=== PATIENT | female | born 1930 | race Caucasian/White ===

== ENCOUNTER 2017-03-25 09:57 | Outpatient (CLI) | END 2017-03-25 09:58 | LOC: AMBL 09:57 | PROVIDERS: ATTEND Emergency Medicine | DX: R51 Headache (principal); R22.0 Localized swelling, mass and lump, head; M25.512 Pain in left shoulder; S61.011A Laceration without foreign body of right thumb without damage to nail, initial encounter; S61.411A Laceration without foreign body of right hand, initial encounter; S80.212A Abrasion, left knee, initial encounter; W10.9XXA Fall (on) (from) unspecified stairs and steps, initial encounter ==

== ENCOUNTER 2017-04-03 06:50 | Emergency (ER) ==
[2017-04-03 06:50] VITALS: BMI 25.4
[2017-04-03 07:10] VITALS: BP 143/76; TEMP 98.6
[2017-04-03 07:51] LABS: BASOPHILS # (AUTO) 0.1 K/uL (0-0.2); BASOPHILS % (AUTO) 0.5 % (0.0-3.0); EOSINOPHILS # (AUTO) 0.2 K/ul (0.0-0.7); EOSINOPHILS % (AUTO) 1.6 % (0.0-7.0); HEMATOCRIT 35.3 % (37.0-47.0); HEMOGLOBIN 12.9 g/dl (12.0-16.0); IMMATURE GRANULOCYTE % (AUTO) 0.6 % (0.0-5.0); LYMPHOCYTES # (AUTO) 2.6 K/uL (0.60-3.4); LYMPHOCYTES % (AUTO) 24.4 (10.0-50.0); MEAN CORPUSCULAR HEMOGLOBIN 31.9 pg (27.0-31.0); MEAN CORPUSCULAR HGB CONC 36.5 (31.8-35.4); MEAN CORPUSCULAR VOLUME 87.4 fl (81.0-99.0); MONOCYTES # (AUTO) 0.8 K/uL (0.4-2.0); MONOCYTES % (AUTO) 7.8 (0-10); NEUTROPHILS % (AUTO) 65.1; PLATELET COUNT 298 10^3/uL (140-440); RED BLOOD COUNT 4.04 10^6/ul (4.20-5.40); WHITE BLOOD COUNT 10.66 K/ul (4.6-10.2)
[2017-04-03 08:14] LABS: ALANINE AMINOTRANSFERASE 15 U/L (12-78); ALBUMIN 3.4 g/dL (3.4-5.0); ALBUMIN/GLOBULIN RATIO 1.17; ALKALINE PHOSPHATASE 78 U/L (53-141); ANION GAP 12.2; ASPARTATE AMINO TRANSFERASE 20 U/L (15-37); BILIRUBIN,TOTAL 0.57 mg/dL (0.00-1.20); BLOOD UREA NITROGEN 9 mg/dL (7-18); BUN/CREATININE RATIO 13.04; CALCIUM 9.2 mg/dL (8.2-10.2); CARBON DIOXIDE 29 mmol/L (23-31); CHLORIDE 93 mmol/L (98-107); CREATINE KINASE 99 U/L; CREATININE 0.69 mg/dL (0.60-1.30); GLUCOSE 108 mg/dL (82-115); POTASSIUM 3.2 mmol/L (3.5-5.10); SODIUM 131 mmol/L (136-145); TOTAL PROTEIN 6.3 g/dL (5.8-8.1)
[2017-04-03 08:38] LABS: BILIRUBIN,URINE Negative (NEGATIVE); KETONES,URINE Negative (NEGATIVE); LEUKOCYTE ESTERASE ,URINE Negative (NEGATIVE); NITRITE,URINE Negative (NEGATIVE); PROTEIN,URINE Negative (NEGATIVE); URINE, BLOOD Negative (NEGATIVE)
[2017-04-03 08:39] LABS: ADD URINE MICROSCOPIC NO
--- NOTE | 2017-04-03 08:41 | CT ---
EXAM: CT of the abdomen pelvis without contrast History: Abdominal pain. Comparison: Chest CT 04/03/2017 Technique: Multiplanar CT images through the abdomen and pelvis were obtained without the administr ation of IV contrast Findings: Heart is mildly enlarged. Coronary calcifications. Bibasilar subsegmental atelectasis a nd trace left pleural effusion. Osteopenia. Left hip arthroplasty hardware. Degenerative changes o f the spine. Subacute appearing mild compression fracture involving the superior endplate of T11. Atherosclerotic vascular calcifications. Status post cholecystectomy. No focal liver or splenic le sions. Moderate to large hiatal hernia. No peripancreatic inflammation. Adrenal glands are unrema rkable. No renal stones and no hydronephrosis. No bladder wall thickening. The rectum is distende d with air and stool. No bowel obstruction. Small area of fat necrosis within the right lower quad rant. Evaluation of the pelvis is somewhat limited due to streak artifact from hardware. Impression: 1. No acute intra-abdominal or pelvic process. 2. [id number] hiatal hernia. 3. Subacute compression fracture involving the superior endplate of T11. 4. Coronary artery disease. 5. Bibasilar subsegmental atelectasis and trace left pleural effusion.
--- NOTE | 2017-04-03 08:44 | CT ---
EXAM: CT chest without contrast. HISTORY: Cough. Initial presentation for chest trauma due to a fall. Left-sided chest pain. COMPARISON: None available. TECHNIQUE: Multiple axial images of the chest were obtained without intravenous contrast. Images w ere reformatted in the sagittal and coronal planes. FINDINGS: Evaluation for lymphadenopathy is limited by lack of intravenous contrast. Calcified med iastinal and hilar lymph nodes present. Heart size is normal. Atherosclerotic calcifications prese nt. The aorta and coronary arteries. No pericardial effusion identified. Scattered areas of subsegmental atelectasis noted in the lung bases, greatest in the left adjacent t o a large hiatal hernia. Calcified granulomatous changes are present. Trace left pleural effusion i s present. No pneumothorax identified. There is subacute to old left lateral fifth, eleventh and t enth rib fractures. Mild superior endplate compression deformity of T11 noted. Limited images of t he upper abdomen demonstrate no acute finding. IMPRESSION: 1. Age indeterminate, subacute to old, left lateral fifth, tenth and eleventh rib fractures. Correl ation with site of pain recommended. 2. Trace left pleural effusion and bibasilar atelectasis. 3. Large hiatal hernia.
--- NOTE | 2017-04-03 08:45 | CT ---
EXAM: CT LUMBAR SPINE HISTORY: Fall 8 days back, left-sided pain TECHNIQUE: CT lumbar spine without contrast. 3-mm axial sections. Coronal and sagittal reformatio ns. COMPARISON: None FINDINGS: The bones are significantly demineralized. There is diffuse severe degenerative disc and facet dise ase. Mild to moderate scoliosis. Degenerative changes lead to multilevel moderate to severe central canal stenosis and neural foraminal narrowing. The central stenosis is probably most apparent at L 4/L5 and the neural foraminal narrowing most apparent on the right at L2/L3. Sacroiliac joints are intact. No paraspinal hematoma. See also same day CT thorax report. IMPRESSION: No acute fracture identified. Severe degenerative changes.
--- NOTE | 2017-04-03 09:47 | CT ---
EXAM: CT of the head without contrast History: Head trauma. Comparison: None available. Technique: Multiplanar CT images through the head were obtained without the administration of IV co ntrast Findings: The visualized paranasal sinuses and mastoid air cells are clear in general. No acute janes varial abnormalities. Intracranially the ventricular and cisternal spaces are normal in size, shape and configuration for a patient of this age. No dominant mass or midline shift. No hydrocephalous. No acute intracrania l hemorrhage or abnormal extraaxial fluid collections. Impression: No acute intracranial process.
--- NOTE | 2017-04-03 09:50 | CT ---
EXAM: CT of the thoracic spine without contrast History: Back trauma. Technique: Multiplanar CT images through the thoracic spine were obtained without the administratio n of IV contrast Findings: Back trauma. Findings: Basilar subsegmental atelectasis and trace left pleural effusion. Coronary artery calcif ications. Osteopenia. Mild to moderate multilevel degenerative disc space narrowing. Acute or subacute compr ession fractures involving the superior endplates of T11 and T12. No subluxation. Bony spinal dianne l is not significantly compromised. Impression: Acute or subacute compression fractures involving superior endplates of T11 and T12.
--- NOTE | 2017-04-03 10:02 | CT ---
EXAM: CT cervical spine. HISTORY: Neck pain. TECHNIQUE: CT cervical spine without contrast. Detailed axial sections. Coronal and sagittal re-f ormations. COMPARISON: None FINDINGS: The bones appear significantly demineralized. There is diffuse degenerative disc and fac et disease. Lateral masses of C1 and C2 are normally aligned and the odontoid process is intact. No spondylolisthesis. There is a minimally distracted fracture involving the left T1 transverse proces s and also a hairline hairline fracture at the same level of the left T2 transverse process. There is no fracture at the level of the cervical spine identified. No traumatic central canal stenosis o r paraspinal hematoma. IMPRESSION: 1. There is a minimally distracted fracture involving the left T1 transverse process and also a emy rline hairline fracture at the same level of the left T2 transverse process. 2. No fractures identified at the level of the cervical spine. 3. Generalized demineralization and degenerative disc/facet disease.
--- NOTE | 2017-04-03 10:43 | ED.PDOC ---
General ED Provider: Dr. MORIAH SHAFFER Chief Complaint: Back Pain Stated Complaint: injury fall back pain chest pain Time Seen by Physician: 07:00 (seen with nursing staff ) Mode of Arrival: Wheelchair Information Source: Patient Exam Limitations: No limitations Primary Care Provider: KEVIN WEN Nursing and Triage Documentation Reviewed and Agree: Yes (fell 9 days ago was seen at [facility] at onset work up was negative) Trauma/Injury Complaint Exam - Trauma Complaint/Exam Location of Pain or Injury: Reports: Neck, Chest, Back Mechanism of Injury: Reports: Fall (standing postion 9 days ago) Onset/Duration: 9 days Symptoms Are: Still present Timing of Treatment: Delayed Initial Severity: Mild Current Severity: Mild Character: Reports: Aching Aggravating: Reports: Movement Alleviating: Reports: Rest, Immobilization Associated Signs and Symptoms: Denies: LOC, Confusion, Memory loss, Lethargy, Vomiting, Bleeding, Bruising, Swelling, Extremity disuse, Painful respiration, Hoarseness, Dysphagia, Hemoptysis, Significant blood loss Related Surgical History: Reports: None Nexus Low Risk Criteria: No evidence of intoxicat., No Altered LOC, No focal neuro deficit, No distracting injuries Glascow Coma Scale (see protocol): 15 Differential Diagnoses: Fracture, Sprain, Strain Review of Systems - Review Of Systems Constitutional: Reports: No symptoms Eyes: Reports: No symptoms Ears, Nose, Mouth, Throat: Reports: No symptoms Respiratory: Reports: No symptoms Cardiac: Reports: Chest pain GI: Reports: No symptoms : Reports: No symptoms Musculoskeletal: Reports: Back pain, Neck pain Skin: Reports: No symptoms Neurological: Reports: No symptoms Endocrine: Reports: No symptoms Hematologic/Lymphatic: Reports: No symptoms All Other Systems: Reviewed and Negative Past Medical History - Past Medical History Previously Healthy: Yes Endocrine: Reports: Hypothyroid Cardiovascular: Reports: Hypertension Respiratory: Reports: None Hematological: Reports: None Gastrointestinal: Reports: None Genitourinary: Reports: None Neuro/Psych: Reports: None Musculoskeletal: Reports: None Cancer: Reports: None Last Menstrual Period: PT HAS HAD A HYSTERECTOMY - Surgical History General Surgical History: Reports: Orthopedic (hip left) - Family History Family History: Reports: Heart - Social History Smoking Status: Never smoker Hx Substance Use: No Alcohol Screening: None - Immunizations Tetanus Shot up to Date: Yes (MARCH 2017) Physical Exam - Physical Exam Appearance: Well-appearing, No pain distress, Well-nourished Eyes: JANAK, EOMI, Conjunctiva clear ENT: Ears normal, Nose normal, Oropharynx normal Respiratory: Airway patent, Breath sounds clear, Breath sounds equal, Respirations nonlabored Cardiovascular: RRR, Pulses normal, No rub, No murmur GI/: Soft, Nontender, No masses, Bowel sounds normal, No Organomegaly Musculoskeletal: Normal strength, ROM intact, No edema, No calf tenderness Skin: Warm, Dry, Normal color Neurological: Sensation intact, Motor intact, Reflexes intact, Cranial nerves intact, Alert, Oriented Psychiatric: Affect appropriate, Mood appropriate Interpretation - Radiology Interpretation Radiology Interpretation By: Radiologist Radiology Results: Positive (stable t11, t12 fracture rib fractures) Physician Notification - Case Discussed Physician Notified: pmd Time of Notification: 10:45 Critical Care Note - Critical Care Note Total Time (mins): 0 Course - Course Hematology/Chemistry: 04/03/17 07:45 04/03/17 07:45 Orders, Labs, Meds: Lab Review 04/03/17 04/03/17 07:45 08:30 WBC 10.66 H RBC 4.04 L Hgb 12.9 Hct 35.3 L MCV 87.4 MCH 31.9 H MCHC 36.5 H RDW Coeff of Tammy 12.3 Plt Count 298 Immature Gran % (Auto) 0.6 Neut % (Auto) 65.1 Lymph % (Auto) 24.4 [place] % (Auto) 7.8 Eos % (Auto) 1.6 Baso % (Auto) 0.5 Immature Gran # (Auto) 0.1 Neut # 7.0 H Lymph # 2.6 [place]lands # 0.8 Eos # 0.2 Baso # 0.1 Sodium 131 L Potassium 3.2 L Chloride 93 L Carbon Dioxide 29 Anion Gap 12.2 BUN 9 Creatinine 0.69 Estimated GFR (MDRD) 81.00 BUN/Creatinine Ratio 13.04 Glucose 108 Calcium 9.2 Total Bilirubin 0.57 AST 20 ALT 15 Alkaline Phosphatase 78 Total Creatine Kinase 99 Troponin I < 0.0100 Total Protein 6.3 Albumin 3.4 Globulin 2.9 Albumin/Globulin Ratio 1.17 Urine Color Yellow Urine Clarity Clear Urine pH 7.0 Ur Specific [place] 1.015 Urine Protein Negative Urine Glucose (UA) Negative Urine Ketones Negative Urine Blood Negative Urine Nitrite Negative Urine Bilirubin Negative Urine Urobilinogen 0.2 Ur Leukocyte Esterase Negative Orders Category Date Time Status EKG-(ED ONLY) Stat CARDIO 04/03/17 07:32 Completed CBC W/ AUTO DIFF Stat LAB 04/03/17 07:45 Completed COMPREHENSIVE METABOLIC PANEL Stat LAB 04/03/17 07:45 Completed CREATINE KINASE Stat LAB 04/03/17 07:45 Completed TROPONIN I Stat LAB 04/03/17 07:45 Completed URINALYSIS C & S IF INDICATED Stat LAB 04/03/17 08:[address] ABDOMEN/PELVIS WO CONTRAST Stat RADS 04/03/17 07:[address] CERVICAL SPINE W/O CONTRAST Stat RADS 04/03/17 09:[address] CHEST W/O CONTRAST Stat RADS 04/03/17 07:[address] HEAD W/O CONTRAST Stat RADS 04/03/17 09:[address] LUMBAR SPINE W/O CONTRAST Stat RADS 04/03/17 07:[address] THORACIC SPINE W/O CONTRAST Stat RADS 04/03/17 09:14 Completed Vital Signs: Temp Pulse Resp BP Pulse Ox 04/03/17 06:51 98.6 F 66 18 143/76 H 95 Departure - Departure Time of Disposition: 10:45 (pmd notified requested to notify doctor aristeo . neuro surgeon will see pt ) Disposition: ADMITTED INPATIENT Discharge Problem: Backache Fracture of rib Qualifiers: Encounter type: initial encounter Rib fracture type: multiple ribs Fracture type: closed Laterality: left Qualifier Code: (S22.42XA) Multiple fractures of ribs, left side, initial encounter for closed fracture Closed fracture of eleventh thoracic vertebra Qualifiers: Encounter type: initial encounter Fracture morphology: unspecified fracture morphology Qualifier Code: (S22.089A) Unspecified fracture of T11-T12 vertebra, initial encounter for closed fracture Instructions: Rib Fracture (ED) Condition: Good Pt referred to PMD for follow-up: Yes (transfer now) Additional Instructions: Please call your Family Physician as soon as possible to schedule a follow-up appointment. Allergies/Adverse Reactions: Allergies latex Adverse Reaction (Verified 04/03/17 07:11) BREAK OUT Home Medications: Ambulatory Orders Atenolol/Chlorthalidone [Tenoretic 50 Tablet] 0.5 tab PO DAILY 07/03/14 Levothyroxine Sodium [Synthroid] 50 mg PO DAILY 07/03/14 Raloxifene HCl [Evista] 60 mg PO DAILY 07/03/14 Spironolactone [Aldactone] 25 mg PO EVERY OTHER DAY 07/03/14 Naproxen [Naprosyn] 500 mg PO BID PRN 11/09/15 Meclizine HCl [Antivert] 25 mg PO TID PRN 04/03/17
== END 2017-04-03 11:28 | disposition short-term general hospital (02) ==
LOC: ED 06:50
DX: S22.089A Unspecified fracture of T11-T12 vertebra, initial encounter for closed fracture (principal); S22.42XA Multiple fractures of ribs, left side, initial encounter for closed fracture; M54.2 Cervicalgia; E03.9 Hypothyroidism, unspecified; I10 Essential (primary) hypertension; W19.XXXA Unspecified fall, initial encounter; Z79.899 Other long term (current) drug therapy
CPT/HCPCS: 36415; 80053; 81001; 82550; 84484; 85025; 93005; 93010; 99285

== ENCOUNTER 2017-04-06 17:08 | Inpatient (IN) | payer OTHER ==
[2017-04-06] MEDS ORDERED: MIRALAX PO PRN (17:28)
[2017-04-06] MEDS ORDERED: NORCO 5-325 PO PRN (17:29)
[2017-04-06] MEDS: TYLENOL PO PRN ×2 (18:14→22:23)
[2017-04-06 18:59] VITALS: BMI 22.3
[2017-04-07] MEDS: TYLENOL PO PRN ×3 (04:06→18:08)
[2017-04-07] MEDS: SYNTHROID PO SCH (05:30)
[2017-04-07] MEDS: LOVENOX SUBCUT SCH (10:33)
[2017-04-07] MEDS: ALDACTONE PO SCH (10:50)
[2017-04-07] MEDS: RALOXIFENE 60 MG PO SCH (17:19)
[2017-04-07] MEDS: TENUATE PO SCH (17:21)
[2017-04-08] MEDS: SYNTHROID PO SCH (05:46)
[2017-04-08] MEDS: TENUATE PO SCH (08:26)
[2017-04-08] MEDS: LOVENOX SUBCUT SCH (08:26)
[2017-04-08] MEDS: RALOXIFENE 60 MG PO SCH (08:26)
[2017-04-08] MEDS: ALDACTONE PO SCH (08:26)
[2017-04-08] MEDS: TYLENOL PO PRN ×2 (10:44→21:25)
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
[2017-04-09] MEDS: SYNTHROID PO SCH (05:56)
[2017-04-09] MEDS: ALDACTONE PO SCH (08:11)
[2017-04-09] MEDS: LOVENOX SUBCUT SCH (08:11)
[2017-04-09] MEDS: TENUATE PO SCH (08:11)
[2017-04-09] MEDS: RALOXIFENE 60 MG PO SCH (08:11)
[2017-04-09] MEDS: TYLENOL PO PRN ×2 (13:10→21:21)
[2017-04-09] MEDS ORDERED: TYLENOL ONE ×2 (13:10→21:21)
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
[2017-04-10] MEDS: SYNTHROID PO SCH (06:02)
[2017-04-10] MEDS: LOVENOX SUBCUT SCH (08:51)
[2017-04-10] MEDS: ALDACTONE PO SCH (08:51)
[2017-04-10] MEDS: RALOXIFENE 60 MG PO SCH (08:52)
[2017-04-10] MEDS: TENUATE PO SCH ×2 (08:52→08:56)
[2017-04-10] MEDS: TYLENOL PO PRN ×2 (08:52→21:46)
[2017-04-10] MEDS ORDERED: TYLENOL ONE ×2 (08:52→21:46)
[2017-04-11 05:39] VITALS: BP 122/69; TEMP 97.8
[2017-04-11] MEDS: SYNTHROID PO SCH (05:39)
[2017-04-11] MEDS: ALDACTONE PO SCH (08:54)
[2017-04-11] MEDS: LOVENOX SUBCUT SCH (08:54)
[2017-04-11] MEDS: TENUATE PO SCH (08:54)
[2017-04-11] MEDS: RALOXIFENE 60 MG PO SCH (08:54)
[2017-04-11 11:00] LABS: ANION GAP 14.7; BUN/CREATININE RATIO 11.11; CALCIUM 9.3 mg/dL (8.2-10.2); CREATININE 0.72 mg/dL (0.60-1.30); POTASSIUM 3.7 mmol/L (3.5-5.10)
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
--- NOTE | 2017-05-07 14:55 | PN ---
DATE OF SERVICE: 04/08/17 CHIEF COMPLAINT: "I broke some bones." BRIEF HISTORY/HISTORY OF PRESENT ILLNESS: She fell several days ago; she was seen at [facility] ER with no fractures seen. Her pain has continued and she presented to the ER here; she was found to have T -spine fractures of T1, T2, T11, T12 and rib fractures on the right 12th, left 5th, 10th and 11th. There was uncertainty whether her T-spine fractures were stable. She was transferred to [facility] and seen by Dr. Granados; subsequent bone scans were done and these areas were felt to be stable; no bracing was even recommended. Her sodium was low at 129 and went to 131; with fluid restrictions. We had to adjust her potassium and Aldactone. She was offered a swing bed admission to develop her stamina and gait and help control her pain and watch her sodium. She agreed. OBJECTIVE: V/S: Temperature 97.3, pulse 69, respirations 18, BP 132/76. GENERAL: No obvious distress. NECK: No tenderness or mass. CHEST: Clear. CARDIOVASCULAR: Regular with trace ankle edema in her remaining left lower extremity. GI: Nontender. ASSESSMENT: 1. Acute back pain 2. Chest wall pain - acute 3. Rib fractures R12, L5, 10 and 11 4. T spine fracture - compression - T1, T2, T11, T12 5. Hypokalemia - 3.2 6. Hyponatremia 131 7. Fall - 03/25/17 8. Gait decline - acute PLAN: 1. MEDICATIONS: a) Acetaminophen (Tylenol 325 mg take two tablets by mouth every 4 hours as needed for mild pain (1-3) b) Atenolol-chlorthalidone (Tenoretic) 50-25 mg per tablet take one half tablet daily c) Enoxaparin (Lovenox) 40 mg/0.4 mL solution syringe inject 0.4 mL under the skin daily d) Hydrocodone-Acetaminophen ([place]) 5-325 mg per tablet take one tablet by mouth every 6 hours as needed for moderate pain e) Levothyroxine (Synthroid, Levothroid) 50 mcg tablet take one tablet by mouth daily f) Polyethylene glycol (Miralax) take 17 gm by mouth daily as needed ( constipation) g) Raloxifene (Evista) 609 mg one tablet by mouth daily h) Spironolactone (Aldactone) 25 mg tablet take one tablet by mouth daily 2. Labs - none 3. Diet regular cardiac 4. Activity - PT hoping for improvement 5. Encourage fluids 6. Discharge planning - patient expects home. 7. Available for POA. MTDD
== END 2017-04-11 13:48 | disposition home or self-care (01) | DRG 184 ==
LOC: MEDSURG B 17:08
PROVIDERS: ADMIT Family Medicine; ATTEND Family Medicine
DX: S22.43XA Multiple fractures of ribs, bilateral, initial encounter for closed fracture (principal); S22.019A Unspecified fracture of first thoracic vertebra, initial encounter for closed fracture; S22.029A Unspecified fracture of second thoracic vertebra, initial encounter for closed fracture; S22.089A Unspecified fracture of T11-T12 vertebra, initial encounter for closed fracture; E87.1 Hypo-osmolality and hyponatremia; R26.2 Difficulty in walking, not elsewhere classified; E87.6 Hypokalemia; I10 Essential (primary) hypertension; E03.9 Hypothyroidism, unspecified; D75.89 Other specified diseases of blood and blood-forming organs; M85.80 Other specified disorders of bone density and structure, unspecified site; E55.9 Vitamin D deficiency, unspecified; W19.XXXA Unspecified fall, initial encounter; Z89.611 Acquired absence of right leg above knee; Z79.899 Other long term (current) drug therapy
CPT/HCPCS: 36415; 80048; 94150; 97802

== ENCOUNTER 2017-06-30 15:32 | Emergency (ER) ==
[2017-06-30 15:39] VITALS: BP 129/73; TEMP 96.2; BMI 20.5
--- NOTE | 2017-06-30 15:56 | ED.PDOC ---
General ED Provider: Dr. AZALIA DUARTE Chief Complaint: Weakness Stated Complaint: Feeling weak since awoke this AM. Mild left sided headache behind eye. left shoulder is sore, secondary, patient states, to trimming shrubbery yesterday. Time Seen by Physician: 15:43 Mode of Arrival: Wheelchair Information Source: Patient Exam Limitations: No limitations Primary Care Provider: KEVIN WEN Nursing and Triage Documentation Reviewed and Agree: Yes Miscellaneous Complaint Exam - Complex/Multi-System Complaint/Exam Onset/Duration: this AM when awoke Symptoms Are: Still present Initial Severity: Moderate Current Severity: Moderate Location of Pain: No pain Associated Signs and Symptoms: Reports: Weakness, Headache (minor pain, behind left eye) Recent Echo/LV Function: No Respiratory Distress: None JVD Present: No Tachypnea Present: No Stridor Present: No Abdominal Findings: Present: Normal findings Meningeal Signs Positive: No Focal Weakness: Present: None Focal Sensory Loss: Present: None Gait: Normal Gag Reflex Present: Yes Babinski Sign: Negative Right, Negative Left Skin Findings: Present: Normal findings Joint Swelling Present: No In-Dwelling Device Present: No Differential Diagnosis: Cardiac Ischemia, Metabolic Abnormality, Sepsis, UTI, Other (viral syndrome) Quality Indicators For Pneumonia/CAP: SpO2 assessed, Vital signs Review of Systems - Review Of Systems Constitutional: Reports: Weakness Eyes: Reports: No symptoms Ears, Nose, Mouth, Throat: Reports: No symptoms Respiratory: Reports: No symptoms Cardiac: Reports: No symptoms GI: Reports: Poor appetite. Denies: Abdomen distended, Abdominal pain, Blood streaked bowels, Constipated, Diarrhea, Difficulty swallowing, Nausea, Poor fluid intake, Rectal bleeding, Vomiting : Reports: No symptoms Musculoskeletal: Reports: No symptoms Skin: Reports: No symptoms Neurological: Reports: Headache (behind right eye, unaffected by eye movements) All Other Systems: Reviewed and Negative Past Medical History - Past Medical History Previously Healthy: Yes Endocrine: Reports: Hypothyroid Cardiovascular: Reports: Hypertension Respiratory: Reports: None Hematological: Reports: None Gastrointestinal: Reports: None Genitourinary: Reports: None Neuro/Psych: Reports: None Musculoskeletal: Reports: None Cancer: Reports: None Last Menstrual Period: NONE - Surgical History General Surgical History: Reports: Orthopedic (hip left, right BKA) - Family History Family History: Reports: Heart - Social History Smoking Status: Never smoker Hx Substance Use: No Alcohol Screening: None Lives: Alone - Immunizations Tetanus Shot up to Date: No Influenza Vaccine within 12 Months: No Pneumococcal Vaccine up to Date: No Physical Exam - Physical Exam Appearance: Well-appearing, No pain distress, Well-nourished Ill-appearing: None Pain Distress: None Eyes: JANAK, EOMI, Conjunctiva clear ENT: Ears normal, Nose normal, Oropharynx normal Neck: Supple Respiratory: Airway patent, Breath sounds clear, Breath sounds equal, Respirations nonlabored Cardiovascular: RRR, Pulses normal, No rub, No murmur GI/: Soft, Nontender, No masses, Bowel sounds normal, No Organomegaly Musculoskeletal: Normal strength, ROM intact (left shoulder has mild anterior muscle tenderness, and increased pain with flexion vs resistance), No edema, No calf tenderness Skin: Warm, Dry, Normal color Neurological: Sensation intact, Motor intact, Reflexes intact, Cranial nerves intact, Alert, Oriented Psychiatric: Affect appropriate, Mood appropriate Interpretation - Radiology Interpretation Radiology Interpretation By: Radiologist Radiology Results: No acute changes Exam Interpreted: CT Scan (head) Critical Care Note - Critical Care Note Total Time (mins): 0 Course - Course Hematology/Chemistry: 06/30/17 16:06 06/30/17 16:06 Orders, Labs, Meds: Lab Review 06/30/17 06/30/17 06/30/17 16:02 16:06 16:06 WBC 8.30 RBC 4.08 L Hgb 12.7 Hct 35.9 L MCV 88.0 MCH 31.1 H MCHC 35.4 RDW Coeff of Tammy 12.3 Plt Count 301 Immature Gran % (Auto) 0.4 Neut % (Auto) 59.0 Lymph % (Auto) 31.4 Dixie % (Auto) 8.1 Eos % (Auto) 0.5 Baso % (Auto) 0.6 Immature Gran # (Auto) 0.0 Neut # 4.9 Lymph # 2.6 Dixie # 0.7 Eos # 0.0 Baso # 0.1 Sodium 134 L Potassium 3.3 L Chloride 98 Carbon Dioxide 25 Anion Gap 14.3 BUN 8 Creatinine 0.66 Estimated GFR (MDRD) 85.00 BUN/Creatinine Ratio 12.12 Glucose 120 H Lactic Acid Calcium 9.2 Total Bilirubin 0.53 AST 17 ALT 11 L Alkaline Phosphatase 91 Total Creatine Kinase 82 Troponin I < 0.0100 Total Protein 6.5 Albumin 3.2 L Globulin 3.3 Albumin/Globulin Ratio 0.97 TSH 2.266 Urine Color Yellow Urine Clarity Clear Urine pH 7.0 Ur Specific [place] 1.015 Urine Protein Negative Urine Glucose (UA) Negative Urine Ketones Negative Urine Blood Negative Urine Nitrite Negative Urine Bilirubin Negative Urine Urobilinogen 1.0 Ur Leukocyte Esterase Negative 06/30/17 16:06 WBC RBC Hgb Hct MCV MCH MCHC RDW Coeff of Tammy Plt Count Immature Gran % (Auto) Neut % (Auto) Lymph % (Auto) Dixie % (Auto) Eos % (Auto) Baso % (Auto) Immature Gran # (Auto) Neut # Lymph # Dixie # Eos # Baso # Sodium Potassium Chloride Carbon Dioxide Anion Gap BUN Creatinine Estimated GFR (MDRD) BUN/Creatinine Ratio Glucose Lactic Acid 13.5 Calcium Total Bilirubin AST ALT Alkaline Phosphatase Total Creatine Kinase Troponin I Total Protein Albumin Globulin Albumin/Globulin Ratio TSH Urine Color Urine Clarity Urine pH Ur Specific [place] Urine Protein Urine Glucose (UA) Urine Ketones Urine Blood Urine Nitrite Urine Bilirubin Urine Urobilinogen Ur Leukocyte Esterase Orders Category Date Time Status EKG-(ED ONLY) Stat CARDIO 06/30/17 15:55 Completed CBC W/ AUTO DIFF Stat LAB 06/30/17 16:06 Completed CK [CREATINE KINASE] Stat LAB 06/30/17 16:06 Completed COMPREHENSIVE METABOLIC PANEL Stat LAB 06/30/17 16:06 Completed LACTIC ACID Stat LAB 06/30/17 16:06 Completed THYROID STIMULATING HORMONE Stat LAB 06/30/17 16:06 Completed TROPONIN I Stat LAB 06/30/17 16:06 Completed URINALYSIS C & S IF INDICATED Stat LAB 06/30/17 16:[address] HEAD W/O CONTRAST Stat RADS 06/30/17 17:27 Completed Vital Signs: Temp Pulse Resp BP Pulse Ox 06/30/17 15:33 96.2 F L 69 18 129/73 97 Departure - Departure Time of Disposition: 18:33 Disposition: HOME SELF-CARE Discharge Problem: Viral illness Instructions: Viral Syndrome (ED) Condition: Good Pt referred to PMD for follow-up: No (See doctor if worsens or no better in 3 days) Additional Instructions: Rest, increased fluids, tylenol or ibuprofen prn pain or fever Allergies/Adverse Reactions: Allergies latex Adverse Reaction (Verified 06/30/17 15:39) BREAK OUT Home Medications: Ambulatory Orders Atenolol/Chlorthalidone [Tenoretic 50 Tablet] 0.5 tab PO DAILY 07/03/14 Raloxifene HCl [Evista] 60 mg PO DAILY 07/03/14 Acetaminophen [Tylenol] 650 mg PO Q4H PRN #1 tablet 04/11/17 Levothyroxine Sodium [Synthroid] 50 mcg PO DAILY #1 04/11/17 Polyethylene Glycol 3350 [Miralax] 17 gm PO DAILY PRN #1 powd.pack 04/11/17 Spironolactone [Aldactone] 25 mg PO DAILY #1 tablet 04/11/17 Disposition Discussed With: Patient
[2017-06-30 16:11] LABS: BASOPHILS # (AUTO) 0.1 K/uL (0-0.2); BASOPHILS % (AUTO) 0.6 % (0.0-3.0); EOSINOPHILS % (AUTO) 0.5 % (0.0-7.0); HEMATOCRIT 35.9 % (37.0-47.0); HEMOGLOBIN 12.7 g/dl (12.0-16.0); IMMATURE GRANULOCYTE % (AUTO) 0.4 % (0.0-5.0); LYMPHOCYTES # (AUTO) 2.6 K/uL (0.60-3.4); LYMPHOCYTES % (AUTO) 31.4 (10.0-50.0); MEAN CORPUSCULAR HEMOGLOBIN 31.1 pg (27.0-31.0); MEAN CORPUSCULAR HGB CONC 35.4 (31.8-35.4); MONOCYTES # (AUTO) 0.7 K/uL (0.4-2.0); MONOCYTES % (AUTO) 8.1 (0-10); NEUTROPHILS # (AUTO) 4.9 K/ul (2.0-6.9); PLATELET COUNT 301 10^3/uL (140-440); RED BLOOD COUNT 4.08 10^6/ul (4.20-5.40)
[2017-06-30 16:14] LABS: ADD URINE MICROSCOPIC NO; BILIRUBIN,URINE Negative (NEGATIVE); KETONES,URINE Negative (NEGATIVE); LEUKOCYTE ESTERASE ,URINE Negative (NEGATIVE); NITRITE,URINE Negative (NEGATIVE); PROTEIN,URINE Negative (NEGATIVE); URINE, BLOOD Negative (NEGATIVE)
[2017-06-30 16:50] LABS: ALANINE AMINOTRANSFERASE 11 U/L (12-78); ALBUMIN 3.2 g/dL (3.4-5.0); ALBUMIN/GLOBULIN RATIO 0.97; ALKALINE PHOSPHATASE 91 U/L (53-141); ANION GAP 14.3; ASPARTATE AMINO TRANSFERASE 17 U/L (15-37); BILIRUBIN,TOTAL 0.53 mg/dL (0.00-1.20); BLOOD UREA NITROGEN 8 mg/dL (7-18); BUN/CREATININE RATIO 12.12; CALCIUM 9.2 mg/dL (8.2-10.2); CARBON DIOXIDE 25 mmol/L (23-31); CHLORIDE 98 mmol/L (98-107); CREATINE KINASE 82 U/L; CREATININE 0.66 mg/dL (0.60-1.30); GLUCOSE 120 mg/dL (82-115); POTASSIUM 3.3 mmol/L (3.5-5.10); SODIUM 134 mmol/L (136-145); TOTAL PROTEIN 6.5 g/dL (5.8-8.1)
--- NOTE | 2017-06-30 18:10 | CT ---
EXAM: CT head without contrast HISTORY: New onset weakness COMPARISON: The CT head 04/03/2017 TECHNIQUE: Serial axial images of the brain were obtained from the skull base to the vertex without IV contrast. FINDINGS: The ventricles, cisterns and sulci demonstrate moderate generalized volume loss. The farrar -white matter junction is maintained. There is scattered low attenuation in the periventricular whit e matter.No midline shift or mass is identified. There is no abnormal intra or extra-axial fluid col lection. The paranasal sinuses and mastoid air cells are clear. The osseous calvarium is intact. IMPRESSION: 1. No acute intracranial abnormality or hemorrhage. If further evaluation is clinically indicated, MRI may be obtained. 2. Scattered microangiopathy and generalized volume loss.
== END 2017-06-30 18:49 | disposition home or self-care (01) ==
LOC: ED 15:32
DX: B34.9 Viral infection, unspecified (principal); R53.1 Weakness; R51 Headache; M25.512 Pain in left shoulder; R00.1 Bradycardia, unspecified; I10 Essential (primary) hypertension; E03.9 Hypothyroidism, unspecified; Z79.899 Other long term (current) drug therapy
CPT/HCPCS: 36415; 80053; 81001; 82550; 83605; 84443; 84484; 85025; 93005; 93010; 99283

== ENCOUNTER 2018-01-31 09:04 | Emergency (ER) | payer OTHER ==
[2018-01-31 09:04] VITALS: BMI 20.5
[2018-01-31 09:10] VITALS: BP 176/81; TEMP 97.7
--- NOTE | 2018-01-31 09:35 | ED.PDOC ---
General ED Provider: Dr. MORIAH SHAFFER Chief Complaint: Non-specific Complaint Stated Complaint: food stuck in throat Time Seen by Physician: 09:10 (able to drink water since onset) Mode of Arrival: Walk-In Information Source: Patient Exam Limitations: No limitations Primary Care Provider: KEVIN WEN Nursing and Triage Documentation Reviewed and Agree: Yes Reviewed sepsis parameters & appropriate labs ordered?: Yes System Inflammatory Response Syndrome: Not Applicable Sepsis Protocol: For patient's 13 years and over: Temp is 96.8 and below OR 101 and greater Pulse >90 BPM Resp >20/minute Acutely Altered Mental Status Are patient's symptoms suggestive of a new infection, such as: -Pneumonia -Skin, Soft Tissue -Endocarditis -UTI -Bone, Joint Infection -Implantable Device -Acute Abdominal Infection -Wound Infection -Meningitis -Blood Stream Catheter Infection -Unknown System Inflammatory Response Syndrome: Not Applicable GI Complaint Exam - Abdominal Pain Complaint/Exam Onset: Sudden Duration: food stuck in her gi tractx 12 hrs able to drink Symptoms Are: Still present Initial Severity: Mild Current Severity: None Aggravating: Reports: Food Alleviating: Reports: None Associated Signs and Symptoms: Denies: Diaphoresis, Fever, Cough, Chest pain, Dizziness, Back pain, Constipation, Blood in stool, Dysuria, Urinary frequency, Decreased urine output, Decreased appetite, Vaginal bleeding, Vaginal discharge , Nausea, Vomiting, Diarrhea, Sore throat, Decreased activity Review of Systems - Review Of Systems Constitutional: Reports: No symptoms Eyes: Reports: No symptoms Ears, Nose, Mouth, Throat: Reports: No symptoms Respiratory: Reports: No symptoms Cardiac: Reports: No symptoms GI: Reports: Other (dysphagia) : Reports: No symptoms Musculoskeletal: Reports: No symptoms Skin: Reports: No symptoms Neurological: Reports: No symptoms Endocrine: Reports: No symptoms Hematologic/Lymphatic: Reports: No symptoms All Other Systems: Reviewed and Negative Past Medical History - Past Medical History Previously Healthy: Yes Endocrine: Reports: Hypothyroid Cardiovascular: Reports: Hypertension Respiratory: Reports: None Hematological: Reports: None Gastrointestinal: Reports: None Genitourinary: Reports: None Neuro/Psych: Reports: None Musculoskeletal: Reports: None Cancer: Reports: None Last Menstrual Period: unknown - Surgical History General Surgical History: Reports: Orthopedic (hip left, right BKA) - Family History Family History: Reports: Heart - Social History Smoking Status: Never smoker Hx Substance Use: No Alcohol Screening: None - Immunizations Influenza Vaccine within 12 Months: No Pneumococcal Vaccine up to Date: No Physical Exam - Physical Exam Appearance: Well-appearing, No pain distress, Well-nourished Eyes: JANAK, EOMI, Conjunctiva clear ENT: Ears normal, Nose normal, Oropharynx normal Respiratory: Airway patent, Breath sounds clear, Breath sounds equal, Respirations nonlabored Cardiovascular: RRR, Pulses normal, No rub, No murmur GI/: Soft, Nontender, No masses, Bowel sounds normal, No Organomegaly Musculoskeletal: Normal strength, ROM intact, No edema, No calf tenderness Skin: Warm, Dry, Normal color Neurological: Sensation intact, Motor intact, Reflexes intact, Cranial nerves intact, Alert, Oriented Psychiatric: Affect appropriate, Mood appropriate Critical Care Note - Critical Care Note Total Time (mins): 0 Course - Course Orders, Labs, Meds: Orders Category Date Time Status NPO REMINDER: IMAGING ONCE CARE 01/31/18 09:27 Active BARIUM SWALLOW Stat RADS 01/31/18 09:27 Taken Vital Signs: Temp Pulse Resp BP Pulse Ox 01/31/18 09:04 97.7 F 67 20 176/81 H 96 Departure - Departure Time of Disposition: 11:00 Disposition: HOME SELF-CARE Discharge Problem: Dysphagia Qualifiers: Dysphagia type: oral phase Qualified Code(s): R13.11 - Dysphagia, oral phase Instructions: Barium Swallow (ED), Dysphagia (ED) Condition: Good Pt referred to PMD for follow-up: Yes IPMP verified?: No Additional Instructions: Please call your Family Physician as soon as possible to schedule a follow-up appointment.discuss endoscopy with your DOCTOR WE DISCUSSED. FAILURE TO DO SO CAN PUT YOU IN RISK OF UNDIAGNOSED CANCER. Allergies/Adverse Reactions: Allergies latex Adverse Reaction (Verified 06/30/17 15:39) BREAK OUT Home Medications: Ambulatory Orders Atenolol/Chlorthalidone [Tenoretic 50 Tablet] 0.5 tab PO DAILY 07/03/14 Raloxifene HCl [Evista] 60 mg PO DAILY 07/03/14 Levothyroxine Sodium [Synthroid] 50 mcg PO DAILY #1 04/11/17 Polyethylene Glycol 3350 [Miralax] 17 gm PO DAILY PRN #1 powd.pack 04/11/17 Spironolactone [Aldactone] 25 mg PO DAILY #1 tablet 04/11/17 Acetaminophen [Children's Acetaminophen] 160 mg PO Q4HR PRN 01/31/18
--- NOTE | 2018-01-31 10:27 | DI ---
EXAM: Single contrast esophagram. History: Food caught in throat. Technique: Patient was given oral barium and multiple spot films of the esophagus and gastroesophage al junction were obtained in various projections. Findings: The course and caliber of the esophagus are within normal limits. No mucosal lesions or f illing defects identified. Gastroesophageal junction is patent. Impression: No acute or significant findings.
== END 2018-01-31 10:49 | disposition home or self-care (01) ==
LOC: ED 09:04
DX: R13.11 Dysphagia, oral phase (principal)
CPT/HCPCS: 99282

== ENCOUNTER 2018-07-01 08:03 | Day surgery (SDC) | payer OTHER ==
[2018-07-01] MEDS ORDERED: DIPRIVAN 20 ML VIAL IVP ONE (09:47)
[2018-07-01] MEDS ORDERED: ROBINOL ONE (09:47)
[2018-07-01] MEDS ORDERED: SUBLIMAZE ONE (09:47)
[2018-07-01 16:09] VITALS: BP 121/77; TEMP 97.8
--- NOTE | 2018-07-02 12:40 | OP ---
INDICATIONS FOR PROCEDURE: 87-year-old female presents complaining of a globus sensation. She states she feels a lump in her neck. She points just to the right side of her Duc's apple. She denies any dysphagia or heartburn. The lump is not affected by swallowing. MEDICATIONS: SEE ANESTHESIA NOTES. PROCEDURE: ENDOSCOPY. REPORT: The risks, benefits, alternatives and limitations were discussed in detail with the patient. Informed consent was obtained. After adequate sedation was achieved, the video endoscope was introduced in the posterior pharynx. Bilimin view revealed no abnormalities. I advanced the scope on into the esophagus down to the second portion of the duodenum. I then slowly withdrew. Duodenal mucosa appeared unremarkable as did duodenal bulb. The antrum and body were relatively unremarkable. The scope was retroflexed to look at cardia and fundus. She has a large hiatal hernia at the diaphragmatic hiatus. There are several Walt type erosions with some adherent old blood present. The scope was anteflexed and withdrawn back into the hernia pouch. About one-fourth of her stomach was above the diaphragm. The esophagus was tortuous but it was normal its entire length. No abnormalities were noted. The patient tolerated the procedure well with stable vital signs and pulse oximetry throughout. IMPRESSION: 1. LARGE HIATAL HERNIA WITH WALT EROSIONS 2. NOTHING TO ACCOUNT FOR SENSATION OF A LUMP IN HER NECK AREA RECOMMENDATIONS: 1. I recommend she be evaluated by ear, nose and throat and will refer her to [facility]. 2. Will treat the walt erosions with Protonix 40 mg p.o. q.a.m. for one month. 3. Strict reflux precautions. 4. Will see her back in the office as needed. 5. She will continue to followup with primary care as well. CC: DR. BETTYE MAR [facility]
== END 2018-07-01 11:00 | disposition home or self-care (01) ==
LOC: SURG 08:03
PROVIDERS: ATTEND Internal Medicine Gastroenterology
DX: F45.8 Other somatoform disorders (principal); K44.9 Diaphragmatic hernia without obstruction or gangrene